=== PATIENT | female | born 1940 | race Caucasian/White ===

== ENCOUNTER 2016-08-21 13:00 | Emergency (ER) | payer MEDICARE | END 2016-08-21 16:10 | disposition home or self-care (01) | LOC: D.ER 13:00 | DX: S00.03XA Contusion of scalp, initial encounter (principal); Y04.2XXA Assault by strike against or bumped into by another person, initial encounter; Y93.89 Activity, other specified; Y92.019 Unspecified place in single-family (private) house as the place of occurrence of the external cause; S00.01XA Abrasion of scalp, initial encounter ==